=== PATIENT | male | born 1975 | race Hispanic/Latino ===

== ENCOUNTER 2018-03-18 20:09 | Emergency (ER) | payer OTHER, SELFPAY ==
[2018-03-18 20:11] VITALS: BP 151/85; PULSE 96; RESP 14; TEMP 36.9; O2SAT 98; BMI 26.1
--- NOTE | 2018-03-18 20:22 | DI.RAD.S_ITS ---
PROCEDURE: XR HAND RT MIN 3V INDICATIONS: cat bite TECHNIQUE: 3 views of the hand(s) acquired. COMPARISON: None. FINDINGS: Bones: No fractures or dislocations. Carpal bones are normally aligned. No suspicious bony lesions. Soft tissues: No suspicious soft tissue calcifications. IMPRESSION: No acute fractures or dislocations. No radiopaque foreign bodies. Dictated by: Randell Cornelius M.D. on 03/18/2018 at 20:34 Approved by: Randell Cornelius M.D. on 03/18/2018 at 20:36
--- NOTE | 2018-03-18 21:07 | ED.SKABFB ---
HPI - Skin/Abscess/Foreign Bdy <DONNELL Reddy - Last Filed: 03/18/18 22:23> General Chief complaint: Skin/Abscess/Foreign Body Stated complaint: CAT BITE RT HAND Time Seen by Provider: 03/18/18 20:42 History of Present Illness HPI narrative: 42-year-old male here for complaint of pain to his right thumb area. Patient states that he was bitten by his cat yesterday. He states that his tetanus is up-to-date. They believe that the cat's immunizations are up-to-date. No other injuries or concerns. Patient reports increased redness to the base of the right thumb today. He reports that he has decreased ability to extend the right thumb.. He is right-hand dominant. No other concerns or complaints. Related Data Previous Rx's Medication Instructions Recorded amoxicillin-pot clavulanate 1 tab PO Q12H #14 tab 03/18/18 [Augmentin] Allergies Allergy/AdvReac Type Severity Reaction Status Date / Time No Known Drug Allergies Allergy Verified 03/18/18 20:14 Review of Systems <DONNELL Reddy - Last Filed: 03/18/18 22:23> Constitutional Denies chills, Denies fever(s), Denies lethargy and Denies weakness Eyes Denies change in vision, Denies eye discharge, Denies irritation and Denies loss of vision Cardiovascular Denies dyspnea and Denies dyspnea on exertion Respiratory Denies cough, Denies dyspnea, Denies dyspnea on exertion and Denies wheezing Musculoskeletal Comments: Cat bite to right thumb with erythema and swelling Integumentary/Breasts Denies pruritus, Denies erythema, Denies rash and Denies wounds Neurologic Denies loss of vision and Denies weakness Allergic/Immunologic Denies wheezing Exam <DONNELL Reddy - Last Filed: 03/18/18 22:23> Const General: cooperative and well developed Nutritional Appearance: well nourished Orientation: alert, awake, oriented x3 and not confused Eyes Pupils: PERRL EOM: EOM intact bilaterally Resp Effort & Inspection: normal respiratory effort, able to speak in complete sentences, no respiratory distress and no use of accessory muscles Auscultation: clear to auscultation bilaterally, no rales, no rhonchi and no wheezes Cardio Rate: regular rate Rhythm: regular rhythm Heart Sounds: no click, no gallops, no murmurs and no rubs Skin General: no rashes or lesions noted, No jaundice and No petechiae Extrem Other: Right thumb with multiple small puncture wounds to in the area of the MCP joint. Erythema and a slight amount of swelling. Distal sensation is intact. Distal cap refill is less than 2 sec. Positive thumb flexion. Patient has ability to extend thumb to about 30?? then decreased amount of extension. MDM - Skin/Abscess/Foreign Bdy <DONNELL Reddy - Last Filed: 03/18/18 22:23> MDM Narrative Medical decision making narrative: X-ray of the right thumb was obtained was negative for any acute findings or foreign bodies. He is placed on Augmentin. Due to decreased ability of flexion of the right thumb he is referred Orthopedics. I contacted Orthopedics Dr. Xavier who recommended 1 dose of IV antibiotics in the emergency room the patient was given Rocephin IV. He is instructed to call Orthopedics thing Tuesday morning to schedule follow-up appointment. [id number] Tylenol or Motrin as needed for any discomfort. For any worsening symptoms return to the emergency room. Imaging Data hand: Radiologist's impression: PROCEDURE: XR HAND RT MIN 3V INDICATIONS: cat bite TECHNIQUE: 3 views of the hand(s) acquired. COMPARISON: None. FINDINGS: Bones: No fractures or dislocations. Carpal bones are normally aligned. No suspicious bony lesions. Soft tissues: No suspicious soft tissue calcifications. IMPRESSION: No acute fractures or dislocations. No radiopaque foreign bodies. Dictated by: Randell Cornelius M.D. on 03/18/2018 at 20:34 Approved by: Randell Cornelius M.D. on 03/18/2018 at 20:36 Discharge Plan Departure Patient Disposition: Home, Self-Care Clinical Impression: Cat bite of right hand Discharge Date/Time: 03/18/18 22:56 Interventions: ED Discharge Assessment Last Done: 03/18/18 22:55 Instructions: DI for Animal Bites, DI for Cat Bite Activity Restrictions/Additional Instructions: X-ray of the right hand was obtained was negative for any acute findings. You have been placed on antibiotic, use as directed. Use [id number] Tylenol or Motrin as needed for any discomfort. For any worsening symptoms return to the emergency room. Call Orthopedics at number provided to schedule follow-up appointment 1st thing Tuesday morning. Follow up with her primary care provider. Prescriptions: New amoxicillin-pot clavulanate [Augmentin] 875-125 mg tablet 1 tab PO Q12H Qty: 14 RF: 0 Referrals: Deepak Xavier MD [Physician] - Course <DONNELL Reddy - Last Filed: 03/18/18 22:23> Orders Ordered: ED Orders 03/18/18 20:22 XR hand RT min 3V Stat Discontinued Medications Amoxicillin/Clavulanate Potassium (Augmentin 875-125 Mg) 1 tab PO NOW ONE Stop: 03/18/18 21:24 Last Admin: 03/18/18 21:30 Dose: 1 tab Ceftriaxone Sodium/Dextrose (Rocephin) 1 gm in 50 mls @ 100 mls/hr IV NOW ONE Stop: 03/18/18 22:33 Last Infusion: 03/18/18 22:54 Dose: 0 mls/hr Admin: 03/18/18 22:20 Dose: 100 mls/hr Last Vital Signs Temp 98.6 F 03/18/18 22:55 Pulse 70 03/18/18 22:55 Resp 16 03/18/18 22:55 BP 146/91 H 03/18/18 22:55 Pulse Ox 98 03/18/18 22:55 <Brandon Joshua DO - Last Filed: 03/19/18 00:35> Orders Ordered: ED Orders 03/18/18 20:22 XR hand RT min 3V Stat Discontinued Medications Amoxicillin/Clavulanate Potassium (Augmentin 875-125 Mg) 1 tab PO NOW ONE Stop: 03/18/18 21:24 Last Admin: 03/18/18 21:30 Dose: 1 tab Ceftriaxone Sodium/Dextrose (Rocephin) 1 gm in 50 mls @ 100 mls/hr IV NOW ONE Stop: 03/18/18 22:33 Last Infusion: 03/18/18 22:54 Dose: 0 mls/hr Admin: 03/18/18 22:20 Dose: 100 mls/hr Last Vital Signs Temp 98.6 F 03/18/18 22:55 Pulse 70 03/18/18 22:55 Resp 16 03/18/18 22:55 BP 146/91 H 03/18/18 22:55 Pulse Ox 98 03/18/18 22:55 <Brandon Joshua DO - Last Filed: 03/19/18 00:35> Cosign ED Attending Gilles Attestation: I was available for consultation during this patient's emergency department encounter
[2018-03-18] MEDS: AMOXICILLIN/CLAV 875/125 MG 1 TAB PO (21:30)
[2018-03-18] MEDS: CEFTRIAXONE 1 GM/50 ML FROZ.PIGGY IV (22:20)
[2018-03-18 22:55] VITALS: BP 146/91; PULSE 70; RESP 16; TEMP 37; O2SAT 98
== END 2018-03-18 22:56 | disposition home or self-care (01) ==
PROVIDERS: Emergency Provider Nurse Practitioner Family
DX: S61.451A Open bite of right hand, initial encounter (principal); W55.01XA Bitten by cat, initial encounter
CPT/HCPCS: 73130; 96374; 99283; 99284

== ENCOUNTER 2023-03-28 13:53 | Day surgery (SDC) | payer OTHER, SELFPAY ==
--- NOTE | 2023-03-28 | PATH_ITS ---
[facility] Accession Number: [id number] No. of containers..01 Tissue . 01 Material submitted: . colon - COLON POLYP . 01 Diagnosis: Colon Polyp: Hyperplastic polyp. MRV 03/30/2023 1431 Local . 01 Electronically signed: . Dev Velez MD, PhD, Pathologist NPI- [id number] . 01 Gross description: . COLON POLYP: Received in formalin is 1 fragment(s) of rojas, soft tissue measuring 0.3 x 0.2 x 0.2 cm submitted entirely in 1 cassette(s) /NIRAV 03/29/2023 1850 Local . 01 Pathologist provided ICD-10: K63.5 . 01 CPT . 275312 Specimen Comment: A courtesy copy of this report has been sent to [phone] Performed at: 01 [facility] [address] [place] [address] [id number] MD Bernabe Dumont MD Phone: [phone]
[2023-03-28 14:14] VITALS: BP 147/87; PULSE 84; RESP 17; TEMP 35.9; O2SAT 98; BMI 24.3
[2023-03-28] MEDS: LACTATED RINGERS 1,000 ML 42 ML IV (14:36)
--- NOTE | 2023-03-28 14:39 | PM.HP.1 ---
History of Present Illness History of Present Illness Date Patient Seen: 03/28/23 Time Patient Seen: 14:39 Chief complaint: SDC Narrative: Here for colon cancer screening. No family history of colon cancer. [facility] Social History household members: spouse Smoking Status: Current every day smoker Meds Home Medications and Allergies Allergies Allergy/AdvReac Type Severity Reaction Status Date / Time No Known Drug Allergies Allergy Verified 03/28/23 14:13 Review of Systems Review of Systems ROS: Yes All systems reviewed with the patient and are negative except as otherwise documented Exam Vital Signs (past 8 hours): - 03/28/23 14:14 Temperature 96.7 F L Pulse Rate 84 Respiratory Rate 17 Blood Pressure 147/87 H Pulse Oximetry 98 Oxygen Delivery Method Room Air Oxygen Delivery Method Room Air Const General: cooperative HENMT Head: normal to inspection Eyes General: appearance normal, both eyes and all related structures Neck Neck: normal visual inspection Chest Chest: normal inspection of the chest Resp Effort & Inspection: normal respiratory effort Cardio Rate: regular rate GI Inspection: normal to inspection Skin General: no rashes or lesions noted Neuro General: patient alert and patient awake Extrem General: normal to inspection and no pedal edema Psych Appearance: grossly normal Assessment & Plan Assessment & Plan narrative: 48-year-old male here for colon cancer screening. Colonoscopy is pursued today.
--- NOTE | 2023-03-28 14:40 | PM.PREOP ---
Pre-operative Note Interval Note History & Physical reviewed/Exam performed by Physician: Yes Changes to H&P: No ASA Class (for procedural sedation): I
--- NOTE | 2023-03-28 15:51 | PM.OP.COLON ---
Operative Date/Time/Diagnoses Date of procedure: 03/28/23 Time of procedure: 15:51 Pre-op diagnosis: Colon cancer screening Post-op diagnosis: same Procedure & Clinicians Study performed: Colonoscopy with cold forceps polypectomy Same procedure as scheduled: Yes Indications: Colon cancer screening Surgeon: Velasquez Ga Procedure Notes SCOAP/Timeout: Done Procedure in detail: After the risks and benefits were explained, written and verbal informed consent was obtained. The patient was brought into the procedure room and placed into the left lateral decubitus position. Please see anesthesia notes for sedation details. Digital rectal examination was accomplished. The scope was introduced into the patient and advanced under direct visualization to the cecum as identified by the appendiceal orifice and ileocecal valve. The scope was slowly withdrawn to carefully examine the mucosa for any defects or lesions. Comprehensive imaging was accomplished throughout the rectum including the dentate line. The colon was decompressed, the scope was then removed from the patient who tolerated the procedure well. Pediatric colonoscope Bowel prep adequate Scope withdrawal time: 9 minutes Sedation minutes: 16 Complications: none Impression: The patient had scattered small diverticula all throughout the left colon. In the descending colon there was an approximately 4 mm polyp removed with cold forceps. No significant additional pathology identified throughout. Endoscopic diagnosis 1. Diminutive colon polyp 2. Diverticulosis Post-procedure Plan for aftercare: 1. Await histopathology. 2. Should adenomatous features be identified, repeat colonoscopy will be suggested for between 5 and 7 years. Disposition: PACU
[2023-03-28 15:52] VITALS: BP 114/71; PULSE 60; RESP 16; TEMP 36.5; O2SAT 100
[2023-03-28 15:57] VITALS: BP 126/73; PULSE 58; RESP 16; O2SAT 99
[2023-03-28 16:02] VITALS: BP 124/86; PULSE 65; RESP 15; O2SAT 100
[2023-03-28 16:05] VITALS: BP 127/86; PULSE 52; RESP 16; TEMP 36.5; O2SAT 100
== END 2023-03-28 16:12 | disposition home or self-care (01) ==
PROVIDERS: Referring Provider Internal Medicine Gastroenterology; Visit Provider Internal Medicine Gastroenterology
PROC: 0DJD8ZZ Inspection of Lower Intestinal Tract, Via Natural or Artificial Opening Endoscopic (ICD-10-PCS; CPT 45378; principal; 2023-03-28 15:00)
DX: Z12.11 Encounter for screening for malignant neoplasm of colon (principal); K57.30 Diverticulosis of large intestine without perforation or abscess without bleeding; K63.5 Polyp of colon
CPT/HCPCS: 45380; J2704

== ENCOUNTER 2024-04-13 09:45 | Outpatient (RCR) | payer OTHER, SELFPAY ==
--- NOTE | 2024-03-16 15:45 | OT.OP.EVAL ---
Visit Care Team Role Provider Type Janell Gurrola MD Attending Provider Non-Staff Family Provider Primary Care Provider Referring Provider Specialty: Medical Address: [address] [place] [address], [id number] Email: Occupational Therapy Initial Evaluation OT Outpatient Adult Evaluation Start: 03/19/24 10:04 Freq: Status: Active Protocol: Document 03/16/24 15:45 AMS (Rec: 03/19/24 10:42 AMS [id number]) General Information - Adult Visit Number [id number] Plan of Care Dates 03/16/24 - 04/13/24 Insurance Information Prime, *Auth x 12 visits Visit Start Time 09:45 Visit Stop Time 10:15 Treatment Setting Outpatient Care Note Type Initial Evaluation Identification Confirmed Yes Identification Confirmed By Self Goals Short Term Goals 1. Deshawn will present with improved active L wrist range of motion: 1a. 0-51 degrees active L wrist ext vs initial 0-46 degrees active L wrist ext. 1b. 0-52 degrees active L wrist flex vs initial 0-47 degrees active L wrist flex. Fdc Goals 1. Deshawn will be modified independent with home exercise program with use of written/ visual instructions as needed. Assessment/Plan Treatment Assessment Deshawn is 48 years-old; he reports being ambidexturous, although, he can not write L handed. He was referred to outpatient secondary to L hand pain. Medical history is significant for back and neck pain. Deshawn reported that at time of original injury his L wrist had 'locked up'. He wore a brace that he was provided with for 2 days during the day and then started wearing the brace just at night. Report of initial Rx of pain medication ; no longer taking med given Rx ran out. Report of 50% or more loss of L hand/terrazzo layer strength. Wrist/Hand Pain Assessment Grid completed; indication of 6 out of 10 on pain scale relative to dorsal L thumb. 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 He indicated having raised garden beds, pigs, goats, chickens, peacocks, and now, boars. (-) intrinsic tightness noted bilaterally. (+) bilateral thumb adductor tightness. No c /o pain/discomfort w/ passive L wrist ROM. 0-46 degrees active L wrist ext vs 0-62 degrees active R wrist ext. 0- 47 degrees active L wrist flex vs 0-67 degrees active R wrist flex. 0-30 degrees bilateral wrist UD. 0-18 degrees active L wrist [address] vs 0 -[address] B wrist MMT 5/5 (wrist flex, wrist ext, wrist RD, wrist UD) . [employer] Strength Testing Results w/ elbows in 90 degrees flexion = 65.0# of force L terrazzo layer (compared to 45- 49 y.o. males norm 100.8 +/- 22.8) vs 103.0# of force R terrazzo layer (compared to 45-49 y.o. males norm 109.9 +/- 23.0). [employer] Strength Testing Results w/ Elbows in extension = 79.0# of force L terrazzo layer vs 83.0# of force R terrazzo layer. Home Exercise Program 03/16/24 = Instructed in passive wrist flex w/ forearm pronated, passive wrist ext w/ forearm supinated, passive wrist RD/UD w/ forearm pronated w/ hold of 20-30 sec. Instructed in passive bilateral thumb adductor release; rec hold of 20-30 sec and then switch. Length of treatment (weeks) 4 Plan of Care Start Date 03/16/24 Plan of Care End Date 04/13/24 Treatment Frequency Once a Week Therapeutic Contents Active Range of Motion, Adaptive Equipment Education, Client Education,Functional Activities,Home Exercise Program,Joint Protection, Manual Therapy,Education, Neurodevelopment Treatment, Neuromuscular Re-Education, Self-Care,Stretching/ Flexibility Activities, Therapeutic Activities, Therapeutic Exercises, Modalities Modalities As Needed,As Prescribed Additional Types of Modalities Heat/Ice/Contrast Baths/ Paraffin
--- NOTE | 2024-03-23 11:59 | OT.OP.TRT ---
Visit Care Team Role Provider Type Janell Gurrola MD Attending Provider Non-Staff Family Provider Primary Care Provider Referring Provider Specialty: Medical Address: [address] [place] [address], [id number] Email: Occupational Therapy Treatment Note OT Outpatient Treatment Note - Adult Start: 03/23/24 11:47 Freq: Status: Active Protocol: Document 03/23/24 11:47 AMS (Rec: 03/23/24 11:59 AMS [id number]) OT Outpatient Adult Treatment Note Session Time Visit Start Time 09:45 Visit Stop Time 10:15 Visit Information Visit Number 12/[id number] Plan of Care Dates 03/16/24 - 04/13/24 Insurance Information Prime, *Auth x 12 visits Setting Treatment Setting Outpatient Care Visit Type Note Type Treatment Note General Information General Information Deshawn is 48 years-old; he reports being ambidexturous, although, he can not write L handed. He was referred to outpatient secondary to L hand pain. Medical history is significant for back and neck pain. Deshawn reported that at time of original injury his L wrist had 'locked up'. He wore a brace that he was provided with for 2 days during the day and then started wearing the brace just at night. Report of initial Rx of pain medication ; no longer taking med given Rx ran out. 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 - Subjective Identification Type Name Observations Deshawn reported relief from grasping L wrist (denied use of any grounding w/ distraction techniques). - Objective Objective Measurements Please refer to below for progress towards meeting established OT goals: Short Term Goals 1. Deshawn will present with improved active L wrist range of motion: 1a. 0-51 degrees active L wrist ext vs initial 0-46 degrees active L wrist ext. 1b. 0-52 degrees active L wrist flex vs initial 0-47 degrees active L wrist flex. Genetics Teacher Goals 1. Deshawn will be modified independent with home exercise program with use of written/ visual instructions as needed. - Exercises 5 Descriptor Hand walks (weight shift to outside of base of support). 4 Descriptor Bilateral wrist strengthening. Dowel. 5# DB. x 6 cycles. 3 Descriptor Weighted spherical ball wrist strengthening. 3.3# weighted spherical ball. CW/UD twist. CCW/RD twist ( more uncomfortable w/ this motor pattern). 2 Descriptor Weighted spherical ball and trampoline. L hand. Body facing angled trampoline. 3 x 15. Alt L hand and R hand. Body facing angled trampoline. 3 x 15. L hand. Body turned 90 degrees to angled trampoline. 3 x 15. 1 Descriptor Passive wrist range of motion. Passive wrist flex w/ forearm pronation. Passive wrist ext w / forearm supination. Elbow extension. Hold 20-30 sec x 1 rep. Passive wrist extension at wall. Forearm pronation. Forearm supination. Executed bilaterally. Hold 20-30 sec x 1 rep. - Assessment Assessment of Improvement Report of squeezing wrist for pain relief/when wrist is locked up. Denied any grounding and/or use of distraction approach. Instructed in alt distal UE stretch w/ utilization of the wall. (+) tolerance of all passive range of motion exercises. Introduced exercises w/ resistance; (+) tolerance of catching rebounding 3.3# weighted spherical ball thrown at angled trampoline w/ the L hand. (-) c/o pain/discomfort. Home Exercise Program 03/23/24 = Instructed in passive wrist ext w/ use of wall. Forearms pronated. Forearms supinated. Hold 20-30 sec. 03/16/24 = Instructed in passive wrist flex w/ forearm pronated, passive wrist ext w/ forearm supinated, passive wrist RD/UD w/ forearm pronated w/ hold of 20-30 sec. Instructed in passive bilateral thumb adductor release; rec hold of 20-30 sec and then switch. - Plan Therapy Recommendations Advance per Rehabilitation Protocol
--- NOTE | 2024-03-30 12:12 | OT.OP.TRT ---
Visit Care Team Role Provider Type Janell Gurrola MD Attending Provider Non-Staff Family Provider Primary Care Provider Referring Provider Specialty: Medical Address: [address] [place] [address], [id number] Email: Occupational Therapy Treatment Note OT Outpatient Treatment Note - Adult Start: 03/23/24 11:47 Freq: Status: Active Protocol: Document 03/30/24 12:07 AMS (Rec: 03/30/24 12:12 AMS [id number]) OT Outpatient Adult Treatment Note Session Time Visit Start Time 09:45 Visit Stop Time 10:20 Visit Information Visit Number [id number] Plan of Care Dates 03/16/24 - 04/13/24 Insurance Information Prime, *Auth x 12 visits Setting Treatment Setting Outpatient Care Visit Type Note Type Treatment Note General Information General Information Deshawn is 48 years-old; he reports being ambidexturous, although, he can not write L handed. He was referred to outpatient secondary to L hand pain. Medical history is significant for back and neck pain. Deshawn reported that at time of original injury his L wrist had 'locked up'. He wore a brace that he was provided with for 2 days during the day and then started wearing the brace just at night. Report of initial Rx of pain medication ; no longer taking med given Rx ran out. 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 - Subjective Identification Type Name Observations Deshawn reported relief from grasping L wrist (denied use of any grounding w/ distraction techniques). - Objective Objective Measurements Please refer to below for progress towards meeting established OT goals: Short Term Goals 1. Deshawn will present with improved active L wrist range of motion: 1a. 0-51 degrees active L wrist ext vs initial 0-46 degrees active L wrist ext. 1b. 0-52 degrees active L wrist flex vs initial 0-47 degrees active L wrist flex. Transplanter Goals 1. Deshawn will be modified independent with home exercise program with use of written/ visual instructions as needed. - Exercises 6 Descriptor Squat machine. Seated. 2-handed approach. Grading of force/landing onto L hand. 25#. 2 x 15. Need to monitor hand positioning. 5 Descriptor Hand walks (weight shift to outside of base of support). 4 Descriptor Bilateral wrist strengthening. Dowel. 5# DB. x 6 cycles. 3 Descriptor Weighted spherical ball wrist strengthening. 3.3# weighted spherical ball. CW/UD twist. CCW/RD twist. No c/o pain/discomfort this date (vs 03/23/24) 2 Descriptor Weighted spherical ball and trampoline. L hand. Body facing angled trampoline. 3 x 15. Alt L hand and R hand. Body facing angled trampoline. 3 x 15. L hand. Body turned 90 degrees to angled trampoline. 3 x 15. 1 Descriptor Passive wrist range of motion. Passive wrist flex w/ forearm pronation/elbow ext. Hold 20 sec. Passive wrist ext w/ forearm pronation/elbow ext. Hold [address]/UD. Forearm pronation. Elbow near full ext . Hold for 20 sec. N/A 03/30/24 Passive wrist extension at wall. Forearm pronation. Forearm supination. Executed bilaterally. Hold 20-30 sec x 1 rep. - Assessment Assessment of Improvement Report of squeezing wrist for pain relief/when wrist is locked up. Tolerated exercises well; no c/o pain/discomfort and/or aggravating L wrist symptoms. Introduced squat machine w/ functional weight bearing; noted to change positioning of L hand throughout exercise. Rec repeating and monitoring. Home Exercise Program 03/23/24 = Instructed in passive wrist ext w/ use of wall. Forearms pronated. Forearms supinated. Hold 20-30 sec. 03/16/24 = Instructed in passive wrist flex w/ forearm pronated, passive wrist ext w/ forearm supinated, passive wrist RD/UD w/ forearm pronated w/ hold of 20-30 sec. Instructed in passive bilateral thumb adductor release; rec hold of 20-30 sec and then switch. - Plan Therapy Recommendations Advance per Rehabilitation Protocol
--- NOTE | 2024-03-30 12:14 | OT.OP.TRT ---
Visit Care Team Role Provider Type Janell Gurrola MD Attending Provider Non-Staff Family Provider Primary Care Provider Referring Provider Specialty: Medical Address: [address] [place] [address], [id number] Email: Occupational Therapy Treatment Note OT Outpatient Treatment Note - Adult Start: 03/23/24 11:47 Freq: Status: Active Protocol: Document 03/30/24 12:07 AMS (Rec: 03/30/24 12:12 AMS [id number]) OT Outpatient Adult Treatment Note Session Time Visit Start Time 09:45 Visit Stop Time 10:20 Visit Information Visit Number 01/[id number] Plan of Care Dates 03/16/24 - 04/13/24 Insurance Information [employer], *Auth x 12 visits Setting Treatment Setting Outpatient Care Visit Type Note Type Treatment Note General Information General Information Deshawn is 48 years-old; he reports being ambidexturous, although, he can not write L handed. He was referred to outpatient secondary to L hand pain. Medical history is significant for back and neck pain. Deshawn reported that at time of original injury his L wrist had 'locked up'. He wore a brace that he was provided with for 2 days during the day and then started wearing the brace just at night. Report of initial Rx of pain medication ; no longer taking med given Rx ran out. 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 - Subjective Identification Type Name Observations Deshawn reported relief from grasping L wrist (denied use of any grounding w/ distraction techniques). - Objective Objective Measurements Please refer to below for progress towards meeting established OT goals: Short Term Goals 1. Deshawn will present with improved active L wrist range of motion: 1a. 0-51 degrees active L wrist ext vs initial 0-46 degrees active L wrist ext. 1b. 0-52 degrees active L wrist flex vs initial 0-47 degrees active L wrist flex. Fondant Machine Operator Goals 1. Deshawn will be modified independent with home exercise program with use of written/ visual instructions as needed. - Exercises 7 Descriptor UEB x 10 minutes. 6 Descriptor Squat machine. Seated. 2-handed approach. Grading of force/landing onto L hand. 25#. 2 x 15. Need to monitor hand positioning. 5 Descriptor Hand walks (weight shift to outside of base of support). 4 Descriptor Bilateral wrist strengthening. Dowel. 5# DB. x 6 cycles. 3 Descriptor Weighted spherical ball wrist strengthening. 3.3# weighted spherical ball. CW/UD twist. CCW/RD twist. No c/o pain/discomfort this date (vs 03/23/24) 2 Descriptor Weighted spherical ball and trampoline. L hand. Body facing angled trampoline. 3 x 15. Alt L hand and R hand. Body facing angled trampoline. 3 x 15. L hand. Body turned 90 degrees to angled trampoline. 3 x 15. 1 Descriptor Passive wrist range of motion. Passive wrist flex w/ forearm pronation/elbow ext. Hold 20 sec. Passive wrist ext w/ forearm pronation/elbow ext. Hold [address]/UD. Forearm pronation. Elbow near full ext . Hold for 20 sec. N/A 03/30/24 Passive wrist extension at wall. Forearm pronation. Forearm supination. Executed bilaterally. Hold 20-30 sec x 1 rep. - Assessment Assessment of Improvement Report of squeezing wrist for pain relief/when wrist is locked up. Tolerated exercises well; no c/o pain/discomfort and/or aggravating L wrist symptoms. Introduced squat machine w/ functional weight bearing; noted to change positioning of L hand throughout exercise. Rec repeating and monitoring. Home Exercise Program 03/23/24 = Instructed in passive wrist ext w/ use of wall. Forearms pronated. Forearms supinated. Hold 20-30 sec. 03/16/24 = Instructed in passive wrist flex w/ forearm pronated, passive wrist ext w/ forearm supinated, passive wrist RD/UD w/ forearm pronated w/ hold of 20-30 sec. Instructed in passive bilateral thumb adductor release; rec hold of 20-30 sec and then switch. - Plan Therapy Recommendations Advance per Rehabilitation Protocol
--- NOTE | 2024-04-06 12:40 | OT.OP.TRT ---
Visit Care Team Role Provider Type Janell Gurrola MD Attending Provider Non-Staff Family Provider Primary Care Provider Referring Provider Specialty: Medical Address: [address] [place] [address], [id number] Email: Occupational Therapy Treatment Note OT Outpatient Treatment Note - Adult Start: 03/23/24 11:47 Freq: Status: Active Protocol: Document 04/06/24 12:36 AMS (Rec: 04/06/24 12:40 AMS [id number]) OT Outpatient Adult Treatment Note Session Time Visit Start Time 09:45 Visit Stop Time 10:25 Visit Information Visit Number [id number] Plan of Care Dates 03/16/24 - 04/13/24 Insurance Information [employer], *Auth x 12 visits Setting Treatment Setting Outpatient Care Visit Type Note Type Treatment Note General Information General Information Deshawn is 49 years-old; he reports being ambidexturous, although, he can not write L handed. He was referred to outpatient secondary to L hand pain. Medical history is significant for back and neck pain. Deshawn reported that at time of original injury his L wrist had 'locked up'. He wore a brace that he was provided with for 2 days during the day and then started wearing the brace just at night. Report of initial Rx of pain medication ; no longer taking med given Rx ran out. 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 - Subjective Identification Type Name Observations Deshawn reported relief from grasping L wrist (denied use of any grounding w/ distraction techniques). No new concerns were reported. - Objective Objective Measurements Please refer to below for progress towards meeting established OT goals: Short Term Goals 1. Deshawn will present with improved active L wrist range of motion: 1a. 0-51 degrees active L wrist ext vs initial 0-46 degrees active L wrist ext. 1b. 0-52 degrees active L wrist flex vs initial 0-47 degrees active L wrist flex. Quality Analyst Goals 1. Deshawn will be modified independent with home exercise program with use of written/ visual instructions as needed. - Exercises 8 Descriptor TB Wrist Strengthening. Wrist flex. TB #4. 3 x 15. Wrist ext. TB #4. [address] TB #4. 3 x 15. Wrist UD. TB #4. 3 x 15. 7 Descriptor UEB x 10 minutes. 6 Descriptor Squat machine. Seated. 2-handed approach. Grading of force/landing onto L hand. 25#. 3 x 15. 5 Descriptor Hand walks (weight shift to outside of base of support). 4 Descriptor Bilateral wrist strengthening. Dowel. 5# DB. x 6 cycles. 3 Descriptor Weighted spherical ball wrist strengthening. 3.3# weighted spherical ball. CW/UD twist. CCW/RD twist. No c/o pain/discomfort this date (vs 03/23/24) 2 Descriptor Weighted spherical ball and trampoline. L hand. Body facing angled trampoline. 3 x 15. 5.5# weighted spherical ball. Alt L hand and R hand. Body facing angled trampoline. 3 x 15. 5.5# weighted spherical ball. L hand. Body turned 90 degrees to angled trampoline. 3 x 15. 5.5# weighted spherical ball. 1 Descriptor Passive wrist range of motion. Passive wrist flex w/ forearm pronation/elbow ext. Hold 20 sec. Passive wrist ext w/ forearm pronation/elbow ext. Hold [address]/UD. Forearm pronation. Elbow near full ext . Hold for 20 sec. N/A 03/30/24 Passive wrist extension at wall. Forearm pronation. Forearm supination. Executed bilaterally. Hold 20-30 sec x 1 rep. - Assessment Assessment of Improvement Upgraded ther ex completed in treatment session. Upgraded HEP; provided w/ TB #4 for home utilization for wrist strengthening. Home Exercise Program 04/06/24 = Instructed in wrist strengthening exercises utilizing TB; provided w/ TB # 4 for home use. Instructed in resisted wrist ext, wrist flex , wrist RD, and wrist UD. Rec 3 x a week or every other day, 3 sets of 15 repetitions. 03/23/24 = Instructed in passive wrist ext w/ use of wall. Forearms pronated. Forearms supinated. Hold 20-30 sec. 03/16/24 = Instructed in passive wrist flex w/ forearm pronated, passive wrist ext w/ forearm supinated, passive wrist RD/UD w/ forearm pronated w/ hold of 20-30 sec. Instructed in passive bilateral thumb adductor release; rec hold of 20-30 sec and then switch. - Plan Therapy Recommendations Advance per Rehabilitation Protocol
--- NOTE | 2024-04-17 08:59 | OT.OP.DC ---
Visit Care Team Role Provider Type Janell Gurrola MD Attending Provider Non-Staff Family Provider Primary Care Provider Referring Provider Address: [address] [place] [address], [id number] Email: OT Outpatient OT Outpatient Adult Evaluation Start: 03/19/24 10:04 Freq: Status: Active Protocol: Document 03/16/24 15:45 AMS (Rec: 03/19/24 10:42 AMS [id number]) General Information - Adult Visit Information Visit Number 11/18 Plan of Care Dates 03/16/24 - 04/13/24 Insurance Information [employer], *Auth x 12 visits Session Time Visit Start Time 09:45 Visit Stop Time 10:15 Setting Treatment Setting Outpatient Care Visit Type Note Type Initial Evaluation Identification Identification Confirmed Yes Identification Confirmed By Self Goals Short Term Goals Short Term Goals 1. Deshawn will present with improved active L wrist range of motion: 1a. 0-51 degrees active L wrist ext vs initial 0-46 degrees active L wrist ext. 1b. 0-52 degrees active L wrist flex vs initial 0-47 degrees active L wrist flex. Detention Goals Detention Goals 1. Deshawn will be modified independent with home exercise program with use of written/ visual instructions as needed. Assessment/Plan Assessment Treatment Assessment Deshawn is 48 years-old; he reports being ambidexturous, although, he can not write L handed. He was referred to outpatient secondary to L hand pain. Medical history is significant for back and neck pain. Deshawn reported that at time of original injury his L wrist had 'locked up'. He wore a brace that he was provided with for 2 days during the day and then started wearing the brace just at night. Report of initial Rx of pain medication ; no longer taking med given Rx ran out. 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 Wrist/Hand Pain Assessment Grid completed; indication of 6 out of 10 on pain scale relative to dorsal L thumb. 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 He indicated having raised garden beds, pigs, goats, chickens, peacocks, and now, boars. (-) intrinsic tightness noted bilaterally. (+) bilateral thumb adductor tightness. No c /o pain/discomfort w/ passive L wrist ROM. 0-46 degrees active L wrist ext vs 0-62 degrees active R wrist ext. 0- 47 degrees active L wrist flex vs 0-67 degrees active R wrist flex. 0-30 degrees bilateral wrist UD. 0-18 degrees active L wrist RD vs 0 -[address] B wrist MMT 5/5 (wrist flex, wrist ext, wrist RD, wrist UD) . Dynamometer II Rod Drawer Strength Testing Results w/ elbows in 90 degrees flexion = 65.0# of force L contract specialist (compared to 45- 49 y.o. males norm 100.8 +/- 22.8) vs 103.0# of force R contract specialist (compared to 45-49 y.o. males norm 109.9 +/- 23.0). Dynamometer II Rod Drawer Strength Testing Results w/ Elbows in extension = 79.0# of force L contract specialist vs 83.0# of force R contract specialist. Home Exercise Program 03/16/24 = Instructed in passive wrist flex w/ forearm pronated, passive wrist ext w/ forearm supinated, passive wrist RD/UD w/ forearm pronated w/ hold of 20-30 sec. Instructed in passive bilateral thumb adductor release; rec hold of 20-30 sec and then switch. Plan Length of treatment (weeks) 4 Plan of Care Start Date 03/16/24 Plan of Care End Date 04/13/24 Treatment Frequency Once a Week Therapeutic Contents Active Range of Motion, Adaptive Equipment Education, Client Education,Functional Activities,Home Exercise Program,Joint Protection, Manual Therapy,Education, Neurodevelopment Treatment, Neuromuscular Re-Education, Self-Care,Stretching/ Flexibility Activities, Therapeutic Activities, Therapeutic Exercises, Modalities Modalities As Needed,As Prescribed Additional Types of Modalities Heat/Ice/Contrast Baths/ Paraffin Functional Wrist/Hand Scan Hand Side Sensory Assessment Sensory Profile2 OT Outpatient Treatment Note - Adult Start: 03/23/24 11:47 Freq: Status: Active Protocol: Document 04/13/24 16:00 AMS (Rec: 04/17/24 08:59 AMS [id number]) OT Outpatient Adult Treatment Note Session Time Visit Start Time 09:55 Visit Stop Time 10:30 Visit Information Visit Number 03/18 Plan of Care Dates 03/16/24 - 04/13/24 Insurance Information [facility], *Auth x 12 visits Setting Treatment Setting Outpatient Care Visit Type Note Type Treatment Note General Information General Information Deshawn is 49 years-old; he reports being ambidexturous, although, he can not write L handed. He was referred to outpatient secondary to L hand pain. Medical history is significant for back and neck pain. Deshawn reported that at time of original injury his L wrist had 'locked up'. He wore a brace that he was provided with for 2 days during the day and then started wearing the brace just at night. Report of initial Rx of pain medication ; no longer taking med given Rx ran out. 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 - Subjective Identification Type Name Observations No new concerns were reported. (-) locking of L wrist noted throughout treatment session. - Objective Objective Measurements Please refer to below for progress towards meeting established OT goals: Short Term Goals GOALS D/C 04/13/24 1. Deshawn will present with improved active L wrist range of motion: 1a. 0-51 degrees active L wrist ext vs initial 0-46 degrees active L wrist ext. 1b. 0-52 degrees active L wrist flex vs initial 0-47 degrees active L wrist flex. Employment Officer Goals Deshawn will be modified independent with home exercise program with use of written/ visual instructions as needed. *MET 04/13/24 - Exercises 8 Descriptor TB Wrist Strengthening. Wrist flex. TB #4. 3 x 15. Wrist ext. TB #4. [address] TB #4. 3 x 15. Wrist UD. TB #4. 3 x 15. 7 Descriptor UEB x 10 minutes. 6 Descriptor Squat machine. Seated. 2-handed approach. Grading of force/landing onto L hand. 25#. 3 x 15. 5 Descriptor Bosu. Squate. 2 x 10. Bosu L <-> R shift inverted. 3 x 10. Bosu forwards <-> backwards shift inverted. 3 x 10. 4 Descriptor Bilateral wrist strengthening. Dowel. 5# DB. x 6 cycles. 3 Descriptor Balance disk. L <-> R 2 x 10. Forwards <-> backwards. 2 x 10 . 2 Descriptor Weighted spherical ball and trampoline. L hand. Body facing angled trampoline. 3 x 15. 5.5# weighted spherical ball. Alt L hand and R hand. Body facing angled trampoline. 3 x 15. 5.5# weighted spherical ball. L hand. Body turned 90 degrees to angled trampoline. 3 x 15. 5.5# weighted spherical ball. 1 Descriptor Passive wrist range of motion. Passive wrist flex w/ forearm pronation/elbow ext. Hold 20 sec. Passive wrist ext w/ forearm supination/elbow ext. Hold [address]/UD. Forearm pronation. Elbow near full ext . Hold for 20 sec. Passive wrist ext ext w/ forearm supination/elbow ext and slight UD. Hold for 20 sec . N/A 03/30/24 Passive wrist extension at wall. Forearm pronation. Forearm supination. Executed bilaterally. Hold 20-30 sec x 1 rep. - Assessment Assessment of Improvement Deshawn is mod independent w/ HEP; (-) locking of L wrist observed within treatment sessions, however, crepitus noted w/ weight bearing bilaterally w/ L <-> R weight shifting/forwards <-> backwards weight shifting intermittently with hands positioned on unstable surfaces (e.g., balance disk). Rec d/c from OT given independence w/ HEP and rec re -evaluating for outpatient OT as deemed fit/appropriate by PCP w/ receipt of new referral . Home Exercise Program 04/13/24 = Instructed in passive wrist ext ext w/ forearm supination/elbow ext and slight UD. Hold for 20 sec. 04/06/24 = Instructed in wrist strengthening exercises utilizing TB; provided w/ TB # 4 for home use. Instructed in resisted wrist ext, wrist flex , wrist RD, and wrist UD. Rec 3 x a week or every other day, 3 sets of 15 repetitions. 03/23/24 = Instructed in passive wrist ext w/ use of wall. Forearms pronated. Forearms supinated. Hold 20-30 sec. 03/16/24 = Instructed in passive wrist flex w/ forearm pronated, passive wrist ext w/ forearm supinated, passive wrist RD/UD w/ forearm pronated w/ hold of 20-30 sec. Instructed in passive bilateral thumb adductor release; rec hold of 20-30 sec and then switch. - Plan Therapy Recommendations Discharge from Occupational Therapy
== END 2024-04-19 09:48 | disposition home or self-care (01) ==
LOC: OT 09:45
PROVIDERS: Family Provider Student in an Organized Health Care Education/Training Program; PCP Student in an Organized Health Care Education/Training Program; Referring Provider Student in an Organized Health Care Education/Training Program; Visit Provider Student in an Organized Health Care Education/Training Program
DX: M79.642 Pain in left hand (principal)
CPT/HCPCS: 97110; 97165

== ENCOUNTER 2024-09-29 20:21 | Emergency (ER) | payer OTHER, SELFPAY ==
[2024-09-29] VITALS (10 sets, daily range): BP systolic 164–199; BP diastolic 91–112; PULSE 57–75; RESP 14–22; TEMP 36.2; O2SAT 98–100; BMI 25.4
--- NOTE | 2024-09-29 20:30 | EKG_ITS ---
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
--- NOTE | 2024-09-29 20:30 | DI.RAD.S_ITS ---
PROCEDURE: XR CHEST 1V INDICATIONS: chest pain. TECHNIQUE: One view of the chest was acquired. COMPARISON: None. FINDINGS: Surgical changes and devices: None. Lungs and pleura: Lungs are clear. No pleural effusions or pneumothorax. Mediastinum: Mediastinal contours appear normal. Heart size is normal. Bones and chest wall: No suspicious bony lesions. Overlying soft tissues appear unremarkable. IMPRESSION: No acute cardiopulmonary abnormality is seen. Approved by: Syed Bell M.D. on 09/29/2024 at 22:56
[2024-09-29] MEDS: ASPIRIN 81 MG CHEW TAB 324 MG PO (20:47)
[2024-09-29 20:51] LABS: Add Manual Diff / Slide Review NO; Basophils Absolute Auto 100 /uL (0-100); Basophils Percent Auto 0.9 % (0-2); Eosinophils Absolute Auto 300 /uL (0-450); Hematocrit 45.9 % (41-53); Hemoglobin 15.8 g/dL (13.5-17.5); Lymphocytes Absolute Auto 4200 /uL (1100-4500); Lymphocytes Percent Auto 29.8 % (25-40); Mean Corpuscular HGB Conc 34.3 % (30-36); Mean Corpuscular Volume 96.2 fL (80-100); Monocytes Absolute Auto 1100 /uL (0-900); Monocytes Percent Auto 7.5 % (3-14); Neutrophils Absolute Auto 8400 /uL (1500-7000); Neutrophils Percent Auto 59.8 % (50-75); Platelet Count 270 X10^3/uL (150-400); Red Blood Cell Count 4.77 X10^6/uL (4.5-5.9); Red Cell Distribution Width 12.4 % (11.6-14.8); White Blood Cell Count 14.1 X10^3/uL (4.5-11.0)
[2024-09-29 21:00] LABS: INR 0.9 (0.9-1.3); Prothrombin Time 10.6 SECONDS (9.4-12.5)
[2024-09-29 21:03] LABS: Alanine Aminotransferase 29 IU/L (<50); Albumin 4.5 g/dL (3.5-5.0); Albumin Globulin Ratio 1.3 (1.0-2.8); Alkaline Phosphatase 81 U/L (38-126); Aspartate Aminotransferase 38 IU/L (17-59); BUN Creatinine Ratio 10.9 (6-22); Bilirubin Total 0.5 mg/dL (0.2-1.3); Blood Urea Nitrogen 11 mg/dL (9-20); Calcium 9.4 mg/dL (8.4-10.2); Carbon Dioxide 26 mmol/L (22-32); Chloride 105 mmol/L (98-107); Creatine Kinase 58 U/L (55-170); Estimated Glomerular Filt Rate > 60 mL/min (>60); Globulin 3.4 g/dL (1.7-4.1); Glucose 108 mg/dL (70-100); HEMOLYSIS 26 (0-50); Lipase 114 U/L (23-300); Magnesium 2.1 mg/dL (1.6-2.3); PTT Partial Thromboplastin Tim 31 SECONDS (25.1-36.5); Potassium 3.8 mmol/L (3.4-5.1); Sodium 136 mmol/L (137-145); Total Protein 7.9 g/dL (6.3-8.2)
--- NOTE | 2024-09-29 21:03 | ED_ITS ---
HPI - Chest Pain General Chief Complaint: Chest Pain Stated Complaint: chest pain Time Seen by Provider: 09/29/24 20:47 Source: patient Mode of arrival: Ambulatory History of Present Illness HPI narrative: 49-year-old male presents for left-sided chest pain that began approximately 1 hour ago. Pain described as a burning ache that went up into his neck and down his left arm. Occurred while driving. Lasted approximately 30 minutes, resolved on its own. Patient states that he had a similar episode several months ago, but he did not seek evaluation at that time. Patient's prompted him to come in for evaluation. Patient was pain-free at the time of arrival to the emergency department. Patient states that he has had fluctuating blood pressures over the last several weeks. He was currently monitoring his blood pressure and has an upcoming appointment with his primary care doctor about possibly starting new medications for BP Reports father had CABG procedure done in either his 60s or 70s. No Known cardiac disease in mother. Related Data Allergies Allergy/AdvReac Type Severity Reaction Status Date / Time No Known Drug Allergies Allergy Verified 03/28/23 14:13 Patient History Social History household members: spouse Smoking Status: Current every day smoker Smoking Status: Current every day smoker alcohol intake frequency: 0-2 drinks per day Substance Use Type: does not use Exam Initial Vital Signs Initial Vital Signs: Vital Signs Temperature 97.1 F L 09/29/24 20:23 Pulse Rate 75 09/29/24 20:23 Respiratory Rate 18 09/29/24 20:23 Blood Pressure 179/104 H 09/29/24 20:23 Pulse Oximetry 99 09/29/24 20:23 Oxygen Delivery Method Room Air 09/29/24 20:23 Const: Awake, alert, no acute distress, nontoxic appearing Cardiac: regular rate, regular rhythm RESP: unlabored, clear bilaterally, no wheezing Skin: Warm, Dry, intact, no rashes Neuro: AO x3, CN II-XII grossly intact, moves all extremities Course Orders Ordered: ED Orders 09/29/24 20:30 XR chest 1V Stat EKG-12 Lead Stat 09/29/24 20:40 Complete Blood Count AUTO DIFF Stat Comprehensive Metabolic Panel Stat Lipase Stat Magnesium Stat NT-proBNP (BNP-Adult 18+) Stat PTT Partial Thromboplastin [place] Stat Prothrombin Time INR Stat Troponin & CK Cardiac Panel Stat 09/29/24 22:25 Trop I [Troponin I] Stat Discontinued Medications Aspirin (Aspirin 81 Mg Chew Tab) 324 mg PO NOW ONE Stop: 09/29/24 20:31 Last Admin: 09/29/24 20:47 Dose: 324 mg Documented By: CLIVE Vital Signs Vital signs: Vital Signs - 8 hr 09/29/24 20:52 09/29/24 20:54 09/29/24 20:54 Pulse Rate 71 72 Respiratory Rate 21 22 Blood Pressure 187/104 H Pulse Oximetry 100 100 Oxygen Delivery Method Room Air 09/29/24 21:00 09/29/24 21:00 09/29/24 21:09 Pulse Rate 68 68 Respiratory Rate 18 17 Blood Pressure 199/103 H Pulse Oximetry 100 99 Oxygen Delivery Method 09/29/24 21:09 09/29/24 21:30 09/29/24 21:30 Pulse Rate 63 Respiratory Rate 14 Blood Pressure 195/102 H 165/93 H Pulse Oximetry 99 Oxygen Delivery Method Room Air 09/29/24 22:00 09/29/24 22:00 09/29/24 22:30 Pulse Rate 60 61 Respiratory Rate 15 17 Blood Pressure 169/91 H Pulse Oximetry 99 99 Oxygen Delivery Method Room Air 09/29/24 22:30 09/29/24 23:00 09/29/24 23:00 Pulse Rate 57 L Respiratory Rate 16 Blood Pressure 164/94 H 179/104 H Pulse Oximetry 99 Oxygen Delivery Method 09/29/24 23:07 09/29/24 23:07 Pulse Rate 62 Respiratory Rate 16 Blood Pressure 171/112 H Pulse Oximetry 98 Oxygen Delivery Method Room Air MDM - Chest Pain Differential Diagnosis Differential diagnosis: Likely atypical chest pain, costochondritis and chest pain Lab Data 09/29/24 20:40 09/29/24 20:40 Labs: Lab Results 09/29/24 09/29/24 Range/Units 20:40 22:25 WBC 14.1 H (4.5-11.0) X10^3/uL RBC 4.77 (4.5-5.9) X10^6/uL Hgb 15.8 (13.5-17.5) g/dL Hct 45.9 (41-53) % MCV 96.2 (80-100) fL MCH 33.0 (26-34) PG MCHC 34.3 (30-36) % RDW 12.4 (11.6-14.8) % Plt Count 270 (150-400) X10^3/uL Neut % (Auto) 59.8 (50-75) % Lymph % (Auto) 29.8 (25-40) % [place] % (Auto) 7.5 (3-14) % Eos % (Auto) 2.0 (2-4) % Baso % (Auto) 0.9 (0-2) % Neut # (Auto) 8400 H (4153-8007) /uL Lymph # (Auto) 4200 (0280-7993) /uL [place] # (Auto) 1100 H (0-900) /uL Eos # (Auto) 300 (0-450) /uL Baso # (Auto) 100 (0-100) /uL PT 10.6 (9.4-12.5) SECONDS INR 0.9 (0.9-1.3) APTT 31 (25.1-36.5) SECONDS Sodium 136 L (137-145) mmol/L Potassium 3.8 (3.4-5.1) mmol/L Chloride 105 (98-107) mmol/L Carbon Dioxide 26 (22-32) mmol/L BUN 11 (9-20) mg/dL Creatinine 1.01 (0.66-1.25) mg/dL Estimated GFR > 60 (>60) mL/min BUN/Creatinine Ratio 10.9 (6-22) Glucose 108 H (70-100) mg/dL Calcium 9.4 (8.4-10.2) mg/dL Magnesium 2.1 (1.6-2.3) mg/dL Total Bilirubin 0.5 (0.2-1.3) mg/dL AST 38 (17-59) IU/L ALT 29 (<50) IU/L Alkaline Phosphatase 81 (38-126) U/L Total Creatine Kinase 58 (55-170) U/L Troponin I < 0.012 < 0.012 (0.01-0.034) ng/mL NT-Pro-B Natriuret Pep < 20 (<125) pg/mL Total Protein 7.9 (6.3-8.2) g/dL Albumin 4.5 (3.5-5.0) g/dL Globulin 3.4 (1.7-4.1) g/dL Albumin/Globulin Ratio 1.3 (1.0-2.8) Lipase 114 (23-300) U/L Imaging Data Chest x-ray: Radiologist's Impression: PROCEDURE: XR CHEST 1V INDICATIONS: chest pain. TECHNIQUE: One view of the chest was acquired. COMPARISON: None. FINDINGS: Surgical changes and devices: None. Lungs and pleura: Lungs are clear. No pleural effusions or pneumothorax. Mediastinum: Mediastinal contours appear normal. Heart size is normal. Bones and chest wall: No suspicious bony lesions. Overlying soft tissues appear unremarkable. IMPRESSION: No acute cardiopulmonary abnormality is seen. Approved by: Syed Bell M.D. on 09/29/2024 at 22:56 ECG Data Attestation: I personally reviewed and interpreted this ECG as follows: Prior ECG tracings: not available for review Interpretation: Normal sinus rhythm at 72 beats per minute. Normal [place], no ST T wave changes, no STEMI MDM Narrative Medical decision making narrative: Brief episode of chest pain while driving. Has been pain free since prior to ED arrival. Physical exam unremarkable, patient has few known risk factors, he may possibly have a new diagnosis of hypertension, still being evaluated by PCP. Patient says SBP sometimes under 140, sometimes as high as 180. EKG NSR. Laboratory work reviewed, troponin undetectable x2, chest x-ray negative for acute findings. Patient has continued to be pain-free since arrival to the emergency department. Patient informed of lab and imaging findings, recommended continued follow up as scheduled with his PCP. Since patient does have family history of cardiac disease I did recommend that he follow up with a applied exercise physiologist and a referral number was provided. ED return precautions discussed with patient at bedside. BP elevated, however patient asymptomatic and currently monitoring his BP. He already has planned f/u for this with PCP Discharge Plan Departure Patient Disposition: Home Clinical Impression: Chest pain Instructions: DI for Chest Pain Activity Restrictions/Additional Instructions: Your laboratory work, EKG, and chest x-ray today were reassuring. This does not appear to be a heart attack at this time. I do not know the exact cause of your chest pain episode today. Make sure that you closely follow up with your primary care physician. Based on your age, your family risk factors it may be worthwhile reaching out to a applied exercise physiologist for evaluation. A referral number has been provided and I do recommend that you call to try make a follow up appointment. If you notice any new or worsening pains please come back to the ED for re-evaluation Referrals: Janell Gurrola MD [Primary Care Provider] - Pino Hooper MD [Physician] - Stand Alone Forms: Patient Portal/API/Survey
[2024-09-29 21:15] LABS: NT-proBNP (BNP-Adult 18+) < 20 pg/mL (<125); Troponin I < 0.012 ng/mL (0.01-0.034)
--- NOTE | 2024-09-29 21:24 | PC.NURSE ---
Provider aware of patient blood pressure. Patient denies headache, chest pain, SOB, N/V or any other symptoms. No new orders at this time.
--- NOTE | 2024-09-29 22:27 | PC.NURSE ---
Repeat troponin level drawn from existing IV
[2024-09-29 22:54] LABS: Troponin I < 0.012 ng/mL (0.01-0.034)
== END 2024-09-29 23:15 | disposition home or self-care (01) ==
PROVIDERS: Emergency Provider Emergency Medicine; Family Provider Student in an Organized Health Care Education/Training Program; PCP Student in an Organized Health Care Education/Training Program
DX: R07.9 Chest pain, unspecified (principal); R03.0 Elevated blood-pressure reading, without diagnosis of hypertension
CPT/HCPCS: 36415; 71045; 80053; 82550; 83690; 83735; 83880; 84484; 85025; 85610; 85730; 93005; 99284

== ENCOUNTER 2025-10-11 17:24 | Emergency (ER) | payer OTHER, SELFPAY ==
[2025-10-11 17:29] VITALS: BP 180/96; PULSE 92; RESP 18; TEMP 36.7; O2SAT 97; BMI 20.7
--- NOTE | 2025-10-11 17:37 | DI.RAD.S_ITS ---
PROCEDURE: XR FOOT LT MIN 3V INDICATIONS: [place] pop while standing and now unable to bear weight TECHNIQUE: 3 views of the foot were acquired. COMPARISON: None. FINDINGS: Bones: No fractures or dislocations. No suspicious bony lesions. Hallux valgus osseous bunion and moderate degenerative change of the 1st MTP. Soft tissues: No tibiotalar joint effusion. Achilles tendon appears normal. IMPRESSION: No acute bony abnormality. Dictated by: Higinio Silver M.D. on 10/11/2025 at 18:19 Approved by: Higinio Silver M.D. on 10/11/2025 at 18:20
--- NOTE | 2025-10-11 17:38 | ED_ITS ---
HPI - Extremity Injury (Lower) General Chief Complaint: Extremity Injury, Lower Stated Complaint: Lt ankle popped, pain Time Seen by Provider: 10/11/25 17:38 History of Present Illness HPI Narrative: 50-year-old male patient with a history of tobacco smoking and hypertension who was at work and tweaked his left foot/ ankle and heard a pop or felt a pop and then could not bear weight on it. No swelling. No other injury. This occurred around 2:00 p.m.. Related Data Allergies Allergy/AdvReac Type Severity Reaction Status Date / Time No Known Drug Allergies Allergy Verified 10/11/25 17:29 Review of Systems Review of Systems ROS Unobtainable: All systems reviewed & are unremarkable except as noted in HPI and below Musculoskeletal Musculoskeletal: Reports as per HPI Patient History Social History household members: spouse Smoking Status: Current every day smoker Smoking Status: Current every day smoker tobacco type: cigarettes alcohol intake frequency: 0-2 drinks per day Alcohol type: beer Exam Narrative Exam Narrative: General: Alert and conversant. No distress. Appears well nourished and well hydrated Lungs: Nonlabored respiration. Musculoskeletal: Exam of the left foot and ankle reveals no bony tenderness or deformity Of the ankle. No swelling. There is tenderness to the dorsal forefoot distal to the ankle which appears to be tenderness but there is a slight bony tenderness with no deformity. Neuro: Alert and oriented. Cranial nerves, motor, sensory and cerebellar all grossly intact. No focal deficit Skin: Warm and normal color. No rashes Psychological: Normal affect and interaction. No evidence of delusion or psychosis. Normal mood. Initial Vital Signs Initial Vital Signs: Vital Signs Temperature 98.1 F 10/11/25 17:29 Pulse Rate 92 H 10/11/25 17:29 Respiratory Rate 18 10/11/25 17:29 Blood Pressure 180/96 H 10/11/25 17:29 Pulse Oximetry 97 10/11/25 17:29 Oxygen Delivery Method Room Air 10/11/25 17:29 Course Orders Ordered: ED Orders 10/11/25 17:37 XR foot LT min 3V Stat Vital Signs Vital signs: Vital Signs - 8 hr 10/11/25 17:29 Temperature 98.1 F Pulse Rate 92 H Respiratory Rate 18 Blood Pressure 180/96 H Pulse Oximetry 97 Oxygen Delivery Method Room Air MDM - Extremity Injury (Lower) Imaging Data Extremity x-ray #1: Attestation: I personally reviewed and interpreted this imaging study as follows: My Impression: left foot radiographs: No fracture Or malalignment [facility] Narrative Medical decision making narrative: Patient has findings consistent with a left foot sprain and no fracture. Patient was given [place] wrap, crutches, ice pack and ibuprofen. Follow up with primary care if not improving in 5 days Discharge Plan Departure Patient Disposition: Home Clinical Impression: Sprain of foot, left Instructions: DI for Foot Sprain Activity Restrictions/Additional Instructions: Plan: [place] wrap, cold packs and ibuprofen. Crutches as needed. Follow up with your doctor if not improving in 5-6 days Referrals: Janell Gurrola MD [Primary Care Provider, Medical] Stand Alone Forms: Patient Portal/API
== END 2025-10-11 18:44 | disposition home or self-care (01) ==
PROVIDERS: Emergency Provider Emergency Medicine; Family Provider Student in an Organized Health Care Education/Training Program; PCP Student in an Organized Health Care Education/Training Program
DX: S93.602A Unspecified sprain of left foot, initial encounter (principal); X50.1XXA Overexertion from prolonged static or awkward postures, initial encounter
CPT/HCPCS: 73630; 99282; 99283